=== PATIENT | female | born 1970 | race Caucasian/White ===

== ENCOUNTER → 2020-03-31 | Outpatient (CLI) | payer BC ==
[~2020-03-31] MED LIST: GABA-290 PO; LOVENOX
== END | disposition home or self-care (01) ==
LOC: LAB 12:39
PROVIDERS: ATTEND Surgery
DX: Z01.812 Encounter for preprocedural laboratory examination (principal); Z20.828 Contact with and (suspected) exposure to other viral communicable diseases
CPT/HCPCS: C9803; U0003

== ENCOUNTER → 2020-04-01 | Day surgery (SDC) | payer BC ==
[~2020-04-01] VITALS: Ht 170.2 cm; Wt 86.2 kg
[~2020-04-01] MED LIST changes: +BUPIVACAINE HCL 0.5% (5MG/ML) 50ML ONE; +CEFAZOLIN SODIUM 1000MG/VIAL ONE; +DEXAMETHASONE 4MG/ML 1ML VIAL ONE; +FENTANYL CITRATE/PF 50MCG/ML 2ML VIAL ONE; +GLYCOPYRROLATE 0.2 MG/ML 2ML VIAL ONE; +HYDROMORPHONE HCL/PF 2MG/ML CPJ IV PRN; +KETOROLAC 30MG/ML VIAL ONE; +LIDOCAINE HCL/PF 1% 10 MG/ML 5ML VIAL ONE; +MEPERIDINE HCL/PF 25MG/ML CPJ IV PRN; +METOCLOPRAMIDE HCL 10MG/2ML VIAL ONE; +MIDAZOLAM HCL 2 MG/2 ML VIAL ONE; +MORPHINE SULFATE 2 MG/ML CPJ (NOT FOR IM USE) IV PRN; +NEOSTIGMINE METHYLSULFATE 1MG/ML 10 ML VIAL ONE; +ONDANSETRON HCL 4MG/2ML INJ ONE; +PROPOFOL 200MG/20ML VIAL IV ONE; +ROCURONIUM BROMIDE 10MG/ML VIAL 5ML IV ONE; +SKIN ADHESIVE 0.7 GM EA TOP ONE; +SODIUM CHLORIDE 0.9% 1,000 ML IV ONE; +SODIUM CHLORIDE 0.9% 10ML VIAL ONE; +SUCCINYLCHOLINE CHLORIDE 200MG/10ML IV ONE
[2020-04-01 06:25] LABS: UCG SCREEN NEGATIVE
[2020-04-01] MEDS: LACTATED RINGERS 1,000 ML IV SCH (06:30)
[2020-04-01] MEDS: ONDANSETRON HCL 4MG/2ML INJ IV PRN (10:19)
[2020-04-01 10:21] VITALS: BP 125/64
[2020-04-01] MEDS: MEPERIDINE HCL/PF 25MG/ML CPJ IV PRN (10:21)
== END | disposition home or self-care (01) ==
LOC: OR 06:04 → EDUNIT# 07:00
PROVIDERS: ATTEND Surgery
DX: K43.9 Ventral hernia without obstruction or gangrene (principal); R10.33 Periumbilical pain; N80.9 Endometriosis, unspecified; F41.9 Anxiety disorder, unspecified; Z79.899 Other long term (current) drug therapy; Z90.49 Acquired absence of other specified parts of digestive tract; Z98.890 Other specified postprocedural states
CPT/HCPCS: 81025; 88304; 88331; C1781; J0330; J0690; J1100; J1885; J2175; J2250; J2405; J2704; J2710; J2765; J3010; J3490